=== PATIENT | male | born 1980 | race Caucasian/White ===

== ENCOUNTER 2018-02-25 21:15 | Emergency (ER) | payer OTHER ==
[~2018-02-25] VITALS: Ht 180.3 cm; Wt 127.0 kg
[2018-02-25 22:02] LABS: HEMOGLOBIN 15.9 G/DL (12.5-16.6); MCH 30.2 PG (29.0-34.0); MCHC 34.6 G/DL (30.0-36.0); MCV 87.5 FL (86-99); PLATELET COUNT 266 K/uL (156-360); RBC DIS.WIDTH-CV 12.8 % (11.8-14.6); RBC DIS.WIDTH-SD 41.1 % (39-53); RED BLOOD COUNT 5.26 M/uL (4.00-5.50); WHITE BLOOD COUNT 11.6 K/uL (4.1-10.2)
[2018-02-25 22:12] LABS: CHLORIDE 108 mEq/L (99-109); SODIUM 142 mEq/L (136-147)
[2018-02-25 22:14] LABS: GLUCOSE 97 mg/dL (70-99)
[2018-02-25 22:18] LABS: CREATININE 0.9 mg/dL (0.6-1.3)
[2018-02-25 22:19] LABS: UREA NITROGEN (BUN) 14 mg/dL (9-23)
[2018-02-25 22:20] LABS: GFR ESTIMATE (CALCULATED) > 59 mL/min/ (58.99-99999)
[2018-02-25 22:23] LABS: TROP-I INTERPRETATION NEGATIVE; TROPONIN-I < 0.01 ng/mL (0.0-0.30)
[2018-02-26 00:57] VITALS: BP 138/80
== END 2018-02-26 00:58 | disposition home or self-care (01) ==
LOC: EME 21:15
DX: R51 Headache (principal); I45.10 Unspecified right bundle-branch block; F17.200 Nicotine dependence, unspecified, uncomplicated; Z88.8 Allergy status to other drugs, medicaments and biological substances
CPT/HCPCS: 71046; 80048; 84484; 85027; 93005; 99281; 99285; J0780; J1885; J7030